=== PATIENT | male | born 1950 | race Caucasian/White ===

== ENCOUNTER 2016-12-12 11:54 | Emergency (ER) | payer MEDICARE, OTHER ==
[~2016-12-12 11:54] MED LIST: ASABAYER PO; CAT1 PO; COREG6 PO; DEPAKOTEER PO; FLONASE NAS; FOLIC PO; GLUCPH PO; LORT7 PO; UNKNOWN BP MED; V5 PO; VENTOLIN HFA INH
== END 2016-12-12 15:14 | disposition home or self-care (01) ==
LOC: ER 11:54
DX: S49.92XA Unspecified injury of left shoulder and upper arm, initial encounter (principal); M54.5 Low back pain; I10 Essential (primary) hypertension; F03.90 Unspecified dementia, unspecified severity, without behavioral disturbance, psychotic disturbance, mood disturbance, and anxiety; Z88.0 Allergy status to penicillin; Z79.82 Long term (current) use of aspirin; Z87.891 Personal history of nicotine dependence; Z79.899 Other long term (current) drug therapy; W19.XXXA Unspecified fall, initial encounter
CPT/HCPCS: 72100; 72131; 73030-LT; 99284; A9270-GY